=== PATIENT | male | born 1990 | race Caucasian/White ===

== ENCOUNTER 2017-03-02 18:22 | Emergency (ER) | payer SELFPAY | END 2017-03-02 20:36 | disposition home or self-care (01) | LOC: D.ER 18:22 | DX: J01.90 Acute sinusitis, unspecified (principal); F17.200 Nicotine dependence, unspecified, uncomplicated ==

== ENCOUNTER 2017-07-10 11:43 | Emergency (ER) | payer SELFPAY | END 2017-07-10 14:02 | disposition home or self-care (01) | LOC: D.ER 11:43 | DX: J20.9 Acute bronchitis, unspecified (principal); F17.200 Nicotine dependence, unspecified, uncomplicated ==

== ENCOUNTER 2017-10-18 22:10 | Emergency (ER) | payer SELFPAY | END 2017-10-18 23:56 | disposition home or self-care (01) | LOC: D.ER 22:10 | DX: J01.90 Acute sinusitis, unspecified (principal) ==

== ENCOUNTER 2017-12-29 14:16 | Inpatient (IN) | payer SELFPAY ==
[~2017-12-29] VITALS: Ht 188 cm; Wt 86.4 kg
[2017-12-29 16:17] LABS: BASOPHILS 0.2 % (0-2); EOSINOPHILS 1.5 % (0-7); HEMATOCRIT 41.5 % (42.0-54.0); IMMATURE GRANULOCYTES 0.3 % (0-5); MCH 29.3 pg (26.0-34.0); MCHC 33.7 g/dL (31.0-37.0); MCV 86.8 fL (80.0-100.0); MEAN PLATELET VOLUME 10.6 fL (7.4-10.4); MONOCYTES 6.5 % (2-11); NEUTROPHILS 73.5 % (40-80); PLATELET COUNT 177 10x3/uL (130-400); RBC 4.78 10x6/uL (4.20-6.10); RDW 13.1 % (11.5-14.5); WBC 9.8 10x3/uL (4.8-10.8)
[2017-12-29 16:32] LABS: APTT 33.7 SECONDS (22.8-39.4); INR 1.27 (0.85-1.17); PROTIME 15.4 SECONDS (11.6-15.0)
[2017-12-29 16:37] LABS: ALBUMIN 3.8 g/dL (3.4-5.0); ALKALINE PHOSPHATASE 85 U/L (46-116); ALT (SGPT) 27 U/L (10-68); BILIRUBIN - TOTAL 0.44 mg/dL (0.2-1.3); CALC OSMOLALITY 276 mosm/kg (275-300); CHLORIDE - SERUM 106 mmol/L (98-107); GLUCOSE 71 mg/dL (74-106); POTASSIUM - SERUM 3.7 mmol/L (3.5-5.1); PROTEIN - SERUM 6.8 g/dL (6.4-8.2); SODIUM 140 mmol/L (136-145); UREA NITROGEN 13 mg/dL (7-18); eGFR NON AFRICAN AMERICAN > 90 mL/min (90-120)
[2017-12-29 20:00] VITALS: BP 117/68
[2017-12-29 23:51] VITALS: BP 114/73; Ht 188 cm; Wt 86.4 kg
[2017-12-30 04:00] VITALS: BP 112/73
[2017-12-30 08:15] VITALS: BP 124/73
[2017-12-30 13:04] VITALS: BP 119/74
[2017-12-30 15:58] VITALS: BP 115/75
[2017-12-30 21:57] VITALS: BP 117/68
[2017-12-31 00:57] VITALS: BP 124/64
[2017-12-31 05:45] VITALS: BP 126/64
[2017-12-31 09:16] VITALS: BP 99/70
[2017-12-31 12:08] VITALS: BP 113/66
[2017-12-31 16:07] VITALS: BP 113/69
[2017-12-31 23:18] VITALS: BP 112/64
[2018-01-01 04:00] VITALS: BP 100/61
[2018-01-01 08:18] VITALS: BP 108/72
[2018-01-01 13:20] VITALS: BP 110/60
[2018-01-01 16:47] VITALS: BP 129/57
[2018-01-01 20:00] VITALS: BP 135/75
[2018-01-02 04:00] VITALS: BP 113/79
[2018-01-02 08:39] VITALS: BP 119/70
[2018-01-02 13:36] VITALS: BP 114/62
[2018-01-02] MEDS ORDERED: CYCLOBENZAPRINE10 MG PO (13:54)
== END 2018-01-02 15:48 | disposition home or self-care (01) | DRG 201 ==
LOC: D.ER 14:16 → D.EDHOLD 16:47 → D.MS 16:47
PROVIDERS: Physician Assistant Medical
PROC: 0W9930Z Drainage of Right Pleural Cavity with Drainage Device, Percutaneous Approach (ICD-10-PCS; principal; 2017-12-29)
DX: J93.9 Pneumothorax, unspecified (principal); F17.200 Nicotine dependence, unspecified, uncomplicated

== ENCOUNTER → 2018-01-05 10:01 | Outpatient (CLI) | payer SELFPAY ==
[2017-12-29 23:51] VITALS: BMI 24.4
[~2018-01-05 10:01] MED LIST: CYCLOBENZAPRINE10 MG PO
== END | disposition home or self-care (01) ==
LOC: D.RAD 10:00
DX: J93.9 Pneumothorax, unspecified (principal)

== ENCOUNTER 2018-05-02 13:08 | Emergency (ER) | payer SELFPAY ==
[~2018-05-02] VITALS: Ht 188 cm; Wt 81.8 kg
[2018-05-02 13:27] VITALS: Ht 188 cm; Wt 81.8 kg
[2018-05-02] MEDS ORDERED: AMOXICILLIN500 M1 PO (13:28)
[2018-05-02] MEDS ORDERED: ULTRAM50 MG PO (14:13)
[2018-05-02 14:45] VITALS: BP 127/77
== END 2018-05-02 14:46 | disposition home or self-care (01) ==
LOC: D.ER 13:08
DX: K02.9 Dental caries, unspecified (principal); K04.7 Periapical abscess without sinus; F17.200 Nicotine dependence, unspecified, uncomplicated

== ENCOUNTER 2018-06-18 13:25 | Emergency (ER) | payer SELFPAY ==
[~2018-06-18] VITALS: Ht 188 cm; Wt 77.3 kg
[~2018-06-18 13:25] MED LIST changes: +AMOXICILLIN500 M1 PO; +ULTRAM50 MG PO
[2018-06-18 14:00] VITALS: Ht 188 cm; Wt 77.3 kg
[2018-06-18] MEDS ORDERED: CLEOCIN HCL300 MG PO (15:24)
[2018-06-18] MEDS ORDERED: TYLENOL #4 W/CO1 TAB PO (15:24)
[2018-06-18 16:18] VITALS: BP 109/72
== END 2018-06-18 16:18 | disposition home or self-care (01) ==
LOC: D.ER 13:25
DX: K08.109 Complete loss of teeth, unspecified cause, unspecified class (principal); K04.7 Periapical abscess without sinus; F17.200 Nicotine dependence, unspecified, uncomplicated

== ENCOUNTER 2019-03-28 08:33 | Emergency (ER) | payer SELFPAY ==
[~2019-03-28 08:33] MED LIST changes: +CLEOCIN HCL300 MG PO; +TYLENOL #4 W/CO1 TAB PO
[2019-03-28 08:35] VITALS: BP 120/88; BMI 23.8
[2019-03-28] MEDS ORDERED: TYLENOL W/CODEI1 TAB PO (08:53)
== END 2019-03-28 09:00 | disposition home or self-care (01) ==
LOC: D.ER 08:33
DX: S29.8XXA Other specified injuries of thorax, initial encounter (principal); V49.9XXA Car occupant (driver) (passenger) injured in unspecified traffic accident, initial encounter; Y93.89 Activity, other specified; Y92.410 Unspecified street and highway as the place of occurrence of the external cause

== ENCOUNTER 2019-09-16 22:09 | Emergency (ER) | payer SELFPAY ==
[~2019-09-16] VITALS: Ht 188 cm; Wt 100.0 kg
[~2019-09-16 22:09] MED LIST changes: +TYLENOL W/CODEI1 TAB PO
[2019-09-16 22:13] VITALS: Ht 188 cm; Wt 100.0 kg
[2019-09-16 23:04] LABS: BASOPHILS 0.3 % (0-2); EOSINOPHILS 1.9 % (0-7); HEMATOCRIT 41.2 % (42.0-54.0); HEMOGLOBIN 14.2 g/dL (13.5-17.5); IMMATURE GRANULOCYTES 0.2 % (0-5); LYMPHOCYTES 33.2 % (15-50); MCH 29.5 pg (26.0-34.0); MCHC 34.5 g/dL (31.0-37.0); MCV 85.7 fL (80.0-100.0); MEAN PLATELET VOLUME 10.2 fL (7.4-10.4); MONOCYTES 9.2 % (2-11); NEUTROPHILS 55.2 % (40-80); RBC 4.81 10x6/uL (4.20-6.10); RDW 12.9 % (11.5-14.5); WBC 9.4 10x3/uL (4.8-10.8)
[2019-09-16 23:08] LABS: PLATELET COUNT 216 10x3/uL (130-400)
[2019-09-16 23:13] LABS: APPEARANCE CLEAR (CLEAR); COLOR YELLOW (YELLOW)
[2019-09-16 23:14] LABS: BILIRUBIN NEGATIVE (NEGATIVE); GLUCOSE NEGATIVE (NEGATIVE); KETONE NEGATIVE (NEGATIVE); NITRITE NEGATIVE (NEGATIVE); PROTEIN NEGATIVE (NEGATIVE); UROBILINOGEN NORMAL (NORMAL)
[2019-09-16 23:15] LABS: APTT 26.9 SECONDS (22.8-39.4); INR 1.04 (0.85-1.17); PROTIME 13.1 SECONDS (11.6-15.0)
[2019-09-16 23:18] LABS: CALC OSMOLALITY 277 mosm/kg (275-300); CALCIUM 9.2 mg/dL (8.5-10.1); CARBON DIOXIDE 27.2 mmol/L (21.0-32.0); CHLORIDE - SERUM 104 mmol/L (98-107); CREATININE - SERUM 0.9 mg/dL (0.6-1.3); GLUCOSE 100 mg/dL (74-106); POTASSIUM - SERUM 3.1 mmol/L (3.5-5.1); SODIUM 140 mmol/L (136-145); UREA NITROGEN 10 mg/dL (7-18); eGFR NON AFRICAN AMERICAN > 90 mL/min (90-120)
[2019-09-16 23:22] LABS: UDS - AMPHET NEGATIVE QUAL (NEGATIVE); UDS - BARB NEGATIVE QUAL (NEGATIVE); UDS - BENZO NEGATIVE QUAL (NEGATIVE); UDS - COCAINE NEGATIVE QUAL (NEGATIVE); UDS - OPIATE NEGATIVE QUAL (NEGATIVE); UDS - PCP NEGATIVE QUAL (NEGATIVE); UDS - THC NEGATIVE QUAL (NEGATIVE)
[2019-09-16 23:31] LABS: ALBUMIN 3.7 g/dL (3.4-5.0); ALKALINE PHOSPHATASE 84 U/L (46-116); ALT (SGPT) 36 U/L (10-68); BILIRUBIN - TOTAL 0.52 mg/dL (0.2-1.3); CKMB 4.5 U/L (0.0-3.6); CREATINE KINASE 453 UL (21-232); MAGNESIUM - SERUM 1.9 mg/dL (1.8-2.4); PROTEIN - SERUM 7.2 g/dL (6.4-8.2)
[2019-09-16 23:33] LABS: TROPONIN-I < 0.017 ng/mL (0.000-0.060)
[2019-09-17 01:43] VITALS: BP 130/74
== END 2019-09-17 01:43 | disposition home or self-care (01) ==
LOC: D.ER 22:09
PROVIDERS: Family Medicine
DX: M62.838 Other muscle spasm (principal); E87.6 Hypokalemia; M25.50 Pain in unspecified joint

== ENCOUNTER 2021-03-24 20:02 | Emergency (ER) | payer SELFPAY ==
[~2021-03-24] VITALS: Ht 188 cm; Wt 104.3 kg
[2021-03-24 20:54] VITALS: BP 132/74; Ht 188 cm; Wt 104.3 kg
[2021-03-24] MEDS ORDERED: PREDNISONE50 MG PO (21:53)
[2021-03-24] MEDS ORDERED: METHOCARBAMOL500 MG PO (21:53)
[2021-03-24] MEDS ORDERED: DICLOFENAC SODI50 MG PO (21:53)
== END 2021-03-24 22:15 | disposition home or self-care (01) ==
LOC: D.ER 20:02
DX: S29.012A Strain of muscle and tendon of back wall of thorax, initial encounter (principal); X50.0XXA Overexertion from strenuous movement or load, initial encounter; Y93.9 Activity, unspecified; Y92.9 Unspecified place or not applicable